=== PATIENT | male | born 1955 | race Caucasian/White ===

== ENCOUNTER → 2019-11-27 | Outpatient (CLI) | payer OTHER | LOC: MRI 09:12 | DX: M43.16 Spondylolisthesis, lumbar region (principal); M51.16 Intervertebral disc disorders with radiculopathy, lumbar region; M12.88 Other specific arthropathies, not elsewhere classified, other specified site; G60.3 Idiopathic progressive neuropathy; M50.00 Cervical disc disorder with myelopathy, unspecified cervical region; M25.78 Osteophyte, vertebrae; G95.9 Disease of spinal cord, unspecified; M48.02 Spinal stenosis, cervical region; M53.86 Other specified dorsopathies, lumbar region; M51.27 Other intervertebral disc displacement, lumbosacral region ==